=== PATIENT | female | born 1960 ===

== ENCOUNTER 2017-03-31 18:36 | Emergency (ER) | payer OTHER ==
[~2017-03-31] VITALS: Ht 165.1 cm; Wt 78.9 kg
[2017-04-01] MEDS ORDERED: ZOFRAN4 MG PO (03:14)
[2017-04-01] MEDS ORDERED: CEFTIN250 MG/5 M PO (03:14)
[2017-04-01] MEDS ORDERED: PEPCID40 MG PO (03:14)
== END 2017-04-01 03:21 | disposition home or self-care (01) ==
LOC: ER 18:36
DX: K29.70 Gastritis, unspecified, without bleeding (principal); R50.9 Fever, unspecified; R51 Headache; N39.0 Urinary tract infection, site not specified